=== PATIENT | male | born 1965 | race Caucasian/White ===

== ENCOUNTER 2020-01-18 19:14 | Emergency (ER) | payer MEDICAID ==
[~2020-01-18] VITALS: Ht 175.3 cm; Wt 83.9 kg
[2020-01-18] MEDS ORDERED: LIDOCAINE 1% HCL (LOCAL ANESTH.) INJ 20ML MDV IJ ONE (19:30)
[2020-01-18] MEDS ORDERED: TETANUS-DIPTH-ACEL PERTUSSIS 0.5ML SYR Tdap IM ONE (19:30)
[2020-01-18 20:53] VITALS: BP 146/103
== END 2020-01-18 21:22 | disposition home or self-care (01) ==
LOC: ER 19:14
DX: S51.811A Laceration without foreign body of right forearm, initial encounter (principal); M79.631 Pain in right forearm; I10 Essential (primary) hypertension; F17.210 Nicotine dependence, cigarettes, uncomplicated; W26.8XXA Contact with other sharp object(s), not elsewhere classified, initial encounter; Y93.89 Activity, other specified; Y92.89 Other specified places as the place of occurrence of the external cause; Y99.0 Civilian activity done for income or pay
CPT/HCPCS: 12002; 90471; 90715; 99283; J2001